=== PATIENT | female | born 1940 | race American Indian/Alaskan Native ===

== ENCOUNTER 2017-03-03 22:53 | Inpatient (IN) | payer MEDICARE, MEDICAID ==
--- NOTE | 2017-03-03 23:17 | ED PDOC ---
Arrival/HPI - General Chief Complaint: Shortness Of Breath Time Seen by Provider: 03/03/17 22:59 Historian: Patient - History of Present Illness Narrative History of Present Illness (Text): 03/03/17 23:14 Charity Nguyen is a 76 year old female, whose past medical history includes breast/lung CA with metastasis, hypertension, and diabetes, presets to the emergency department from [facility] for several days duration of worsening shortness of breath. Patient also endorses a cough and notes of chest pain only when coughing. Reports of mild discomfort while swallowing and some nausea. Denies abdominal pain, vomiting, or diarrhea. Denies fever, chills, headache, dizziness, urinary symptoms, or any other complaints at this time. Time/Duration: < week (several days ) Symptom Onset: Gradual Symptom Course: Worsening Severity Level: Mild Activities at Onset: Light Context: Other (custodial ) Past Medical History - Provider Review Nursing Documentation Reviewed: Yes - Infectious Disease Hx of Infectious Diseases: None - Cardiac Hx Cardiac Disorders: Yes Hx Hypertension: Yes - Pulmonary Hx Respiratory Disorders: Yes Hx Lung Cancer: Yes Hx Sleep Apnea: Yes (WEARS CPAP) - Neurological Hx Neurological Disorder: No Hx Paralysis: No - HEENT Hx HEENT Disorder: No - Renal Hx Renal Disorder: No - Endocrine/Metabolic Hx Diabetes Mellitus Type 2: Yes - Hematological/Oncological Hx Blood Disorders: No Hx Blood Transfusions: No Hx Cancer: Yes (Lung CA) - Integumentary Hx Dermatological Disorder: No - Musculoskeletal/Rheumatological Hx 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; SH JT) - Gastrointestinal Hx Gastrointestinal Disorders: Yes - Genitourinary/Gynecological Hx Genitourinary Disorders: No - Psychiatric Hx Psychophysiologic Disorder: Yes Hx Anxiety: Yes Hx Substance Use: No - Surgical History Hx Tonsillectomy: Yes Hx Vascular Access Device: Yes (Right subclavian portacath) - Anesthesia Hx Anesthesia: Yes Hx Anesthesia Reactions: No Hx Malignant Hyperthermia: No - Suicidal Assessment Feels Threatened In Home Enviroment: No Family/Social History - Physician Review Nursing Documentation Reviewed: Yes Family/Social History: No Known Family HX Smoking Status: Never Smoked Hx Alcohol Use: No Hx Substance Use: No Allergies/Home Meds Allergies/Adverse Reactions: Allergies coconut Allergy (Severe, Verified 08/28/16 09:50) ITCHING,SWELLING,HIVES lactose Allergy (Severe, Verified 08/28/16 09:50) GI DISTRESS Penicillins Allergy (Severe, Verified 08/28/16 09:50) HIVES,ITCHING NUTS Allergy (Severe, Uncoded 08/28/16 09:50) SWELLING,HIVES,ITCHING PALM SEED OIL Allergy (Severe, Uncoded 08/28/16 09:50) ITCHING,SWELLING,HIVES seeds Allergy (Intermediate, Uncoded 06/16/15 04:28) RASH Home Medications: Home Meds Medication Instructions Recorded Confirmed Metoclopramide HCl [Reglan] 5 mg PO TID 06/22/14 03/03/17 Glipizide [Glipizide ER] 2.5 mg PO DAILY 02/28/15 03/03/17 Cholecalciferol [Vitamin D 1000 IU] 1 tab PO DAILY 06/07/15 03/03/17 Metoprolol Succinate 25 mg PO DAILY 06/07/15 03/03/17 ALPRAZolam [Xanax] 1 mg PO TID PRN 08/28/16 03/03/17 Aspirin [Ecotrin] 81 mg PO DAILY 08/28/16 03/03/17 Ferrous Sulfate [Iron] 325 mg PO DAILY 08/28/16 03/03/17 Furosemide [Lasix] 40 mg PO DAILY 08/28/16 03/03/17 Multivitamin [One Daily] 1 tab PO DAILY 08/28/16 03/03/17 Qcizw-4-Jeap Ethyl Esters [OMEGA 3] 500 mg PO DAILY 08/28/16 03/03/17 amLODIPine [Norvasc] 5 mg PO DAILY 08/28/16 03/03/17 traMADol [Ultram] 50 mg PO Q8H PRN 08/28/16 03/03/17 Amino Acids/Protein Hydrolys 30 ml PO DAILY 03/03/17 03/03/17 [Prosource No Carb Protein Liq] Clotrimazole/Betamethasone 1 applic TOP BID 03/03/17 03/03/17 [Lotrisone] Docusate [Colace] 1 cap PO TID 03/03/17 03/03/17 Enoxaparin [Lovenox] 40 mg SC DAILY 03/03/17 03/03/17 Fentanyl [Fentanyl] 25 mcg TD Q72H 03/03/17 03/03/17 Insulin Human Regular [Novolin R] 1 unit SC ACHS 03/03/17 03/03/17 Olmesartan/Hydrochlorothiazide 1 tab PO DAILY 03/03/17 03/03/17 [Benicar Hct 40-12.5 mg Tablet] Potassium Chloride [K-Dur 20 mEq 1 tab PO DAILY 03/03/17 03/03/17 ER Tab] levoFLOXacin [Levaquin] 1 tab PO DAILY 03/03/17 03/03/17 Review of Systems - Physician Review All systems were reviewed & negative as marked: Yes - Review of Systems Constitutional: Normal. absent: Fatigue, Fevers Respiratory: SOB, Cough. absent: Sputum Cardiovascular: Chest Pain (while coughing ) Gastrointestinal: Nausea, Appetite Changes (decreased appetite ). absent: Abdominal Pain, Diarrhea, Vomiting Neurological: Normal. absent: Headache, Dizziness, Focal Weakness Physical Exam Vital Signs Reviewed: Yes Vital Signs Temp Pulse Resp BP Pulse Ox 03/04/17 00:50 96 H 17 144/75 99 03/04/17 00:05 156/80 H 03/03/17 23:33 98.8 F 03/03/17 23:00 18 100 03/03/17 22:54 99 H 17 156/80 H 99 Temperature: Afebrile Blood Pressure: Hypertensive Pulse: Tachycardic Respiratory Rate: Normal Appearance: Positive for: Non-Toxic, Uncomfortable Pain Distress: None Mental Status: Positive for: Alert and Oriented X 3 - Systems Exam Head: Present: Atraumatic, Normocephalic Pupils: Present: PERRL Conjunctiva: Present: Normal Mouth: Present: Moist Mucous Membranes Respiratory/Chest: Present: Decreased Breath Sounds (diminished breath sounds bilaterally ). No: Respiratory Distress, Accessory Muscle Use Cardiovascular: Present: Regular Rate and Rhythm, Normal S1, S2. No: Murmurs Abdomen: Present: Normal Bowel Sounds. No: Tenderness, Distention, Peritoneal Signs Lower Extremity: Present: Edema (trace edema ). No: CALF TENDERNESS Neurological: Present: GCS=15, CN II-XII Intact, Speech Normal, Motor Func Grossly Intact, Normal Sensory Function Skin: Present: Warm, Dry, Normal Color. No: Rashes Psychiatric: Present: Alert, Oriented x 3, Normal Insight, Normal Concentration Medical Decision Making ED Course and Treatment: 03/03/17 23:20 Impression: A 76 year old female who presents to the emergency department complaining of several day duration of shortness of breath and chest pain only when coughing. Differential Diagnosis include but are not limited to: Worsening metastasis vs. Pleural effusion vs. Pneumonia vs. CHF Plan: -- EKG -- Labs, cardiac enzymes -- Chest X-ray -- Blood culture -- Urinalysis -- Reassess and disposition Progress Notes: 03/03/17 23:56 EKG interpreted by me: NSR @ 93 bpm. RBBB. Left axis deivation. QRS 138. No STT changes compared to Chest X-ray interpreted by me: shows bilateral pleural effusion. 03/04/17 00:43 Patient's history is noted. CXR shows b/L pleural effusions. There is no noted history of CHF, per record. Pleural effusions are likely related to the metastasis. Will administer lasix and place on tele. Case discussed with Dr. Villar who is aware and agrees with the plan to observe patient at telemetry of pleural effusion. Accepts patient under his service with and Dr. Loco on consult. - Lab Interpretations Lab Results: 03/03/17 23:00 03/03/17 23:00 Lab Results 03/04/17 00:24: Urine Color Yellow, Urine Appearance Clear, Urine pH 6.0, Ur Specific [place] >= 1.030, Urine Protein Negative, Urine Glucose (UA) Negative, Urine Ketones Negative, Urine Blood Trace-lysed H, Urine Nitrate Negative, Urine Bilirubin Negative, Urine Urobilinogen 0.2, Ur Leukocyte Esterase Negative , Urine RBC 0 - 2, Urine WBC 1 - 3, Ur Epithelial Cells 3 - 4, Urine Bacteria Few 03/03/17 23:00: Sodium 133, Potassium 3.7, Chloride 93 L, Carbon Dioxide 34 H, Anion Gap 10, BUN 15, Creatinine 0.6, Est GFR ( Amer) > 60, Est GFR (Non- Af Amer) > 60, Random Glucose 123 H, Calcium 9.1, Magnesium 1.7, Total Bilirubin 0.4, AST 19, ALT 26, Alkaline Phosphatase 72, Lactate Dehydrogenase 345, Total Creatine Kinase 25 L, Troponin I < 0.01, NT-Pro-B Natriuret Pep 301, Total Protein 6.2, Albumin 3.2, Globulin 3.0, Albumin/Globulin Ratio 1.1, Lipase 17 L 03/03/17 23:00: PT 11.9 H, INR 1.10 H, APTT 27.5 03/03/17 23:00: WBC 7.1 D, RBC 3.96, Hgb 11.2 L, Hct 32.3 L, MCV 81.6, MCH 28.3 , MCHC 34.7, RDW 14.9 H, Plt Count 284, MPV 10.3, Gran % 66.0, Lymph % (Auto) 16.4 L, [place] % (Auto) 14.2 H, Eos % (Auto) 3.1, Baso % (Auto) 0.3, Gran # 4.71, Lymph # 1.2, [place] # 1.0 H, Eos # 0.2, Baso # 0.02 - RAD Interpretation Radiology Orders: 03/03/17 23:20 CHEST PORTABLE [RAD] Stat - Medication Orders Current Medication Orders: Discontinued Medications Furosemide (Lasix) 40 mg IVP STAT STA Stop: 03/03/17 23:58 Last Admin: 03/04/17 00:05 Dose: 40 mg - Scribe Statement The provider has reviewed the documentation as recorded by the Lam Egan Provider Attestation: All medical record entries made by the Lam were at my direction and personally dictated by me. I have reviewed the chart and agree that the record accurately reflects my personal performance of the history, physical exam, medical decision making, and the department course for this patient. I have also personally directed, reviewed, and agree with the discharge instructions and disposition. Disposition/Present on Arrival - Present on Arrival Any Indicators Present on Arrival: No History of DVT/PE: No History of Uncontrolled Diabetes: No Urinary Catheter: No History of Decub. Ulcer: No History Surgical Site Infection Following: None - Disposition Have Diagnosis and Disposition been Completed?: Yes Diagnosis: Pleural effusion Disposition: HOSPITALIZED Disposition Time: 12:35 Patient Plan: Observation, Telemetry Condition: FAIR
[2017-03-04 00:22] LABS: BASO # 0.02 K/mm3 (0.0-2.0); BASO % 0.3 % (0.0-3.0); EOS # 0.2 (0.0-0.7); EOS % 3.1 % (1.5-5.0); GRAN # 4.71 (1.4-6.5); HEMOGLOBIN 11.2 gm/dL (12.0-16.0); LYMPH # 1.2 (1.2-3.4); LYMPH % 16.4 % (22.0-35.0); MEAN CELL VOLUME 81.6 fL (80.0-105.0); MEAN CORPUSCULAR HEMOGLOBIN 28.3 pg (25.0-35.0); MEAN CORPUSCULAR HGB CONC 34.7 g/dl (31.0-37.0); MEAN PLATELET VOLUME 10.3 fl (7.0-11.0); MONO % 14.2 % (1.0-6.0); PLATELET COUNT 284 10^3/uL (120.0-450.0); RBC 3.96 10^6/uL (3.5-6.1); RED CELL DISTRIBUTION WIDTH 14.9 % (11.5-14.5); WHITE BLOOD COUNT 7.1 10^3/ul (4.5-11.0)
[2017-03-04 00:31] LABS: ALB/GLOB RATIO 1.1 (1.1-1.8); ALBUMIN 3.2 g/dL (3.0-4.8); ALT/SGPT 26 U/L (7-56); AST/SGOT 19 U/L (15-39); BLOOD UREA NITROGEN 15 mg/dL (7-21); CALCIUM 9.1 mg/dL (8.4-10.5); GFR AFRICAN-AMERICAN > 60; GFR NON-AFRICAN AMERICAN > 60; INR 1.1 (0.93-1.08); LIPASE 17 U/L (23-300); MAGNESIUM 1.7 mg/dL (1.7-2.2); PARTIAL THROMBOPLASTIN TIME 27.5 Seconds (23.7-30.8); PROTHROMBIN TIME 11.9 Seconds (9.9-11.8)
[2017-03-04 00:34] LABS: URINE BILIRUBIN NEGATIVE (NEGATIVE); URINE BLOOD TRACE-LYSED (NEGATIVE); URINE GLUCOSE (UA) NEGATIVE (NEGATIVE); URINE LEUKOCYTE ESTERASE NEGATIVE Leu/uL (NEGATIVE); URINE NITRATE NEGATIVE (NEGATIVE); URINE PROTEIN NEGATIVE mg/dL (<30 mg/dL); URINE UROBILINOGEN 0.2 E.U./dL (<1 E.U./dL)
[2017-03-04 00:35] LABS: URINE APPEARANCE CLEAR (CLEAR); URINE COLOR YELLOW (YELLOW)
[2017-03-04 00:41] LABS: URINE BACTERIA FEW (NEG); URINE RBC 0 - 2 /hpf (0-2)
[2017-03-04 00:42] LABS: B-TYPE NATRIURETIC PEPTIDE 301 pg/mL (0-450)
[2017-03-04 00:47] LABS: TROPONIN I < 0.01 ng/mL
[2017-03-04 04:02] VITALS: BMI 35.8
[2017-03-04] MEDS ORDERED: Levalbuterol 0.63 MG/3 ML Inhal Soln UD IH PRN (07:50)
--- NOTE | 2017-03-04 08:09 | CP.PCM.HP ---
History of Present Illness - History of Present Illness History of Present Illness: 76 y/o aaf from alexx at [facility] for weakness presents w/ acute sob s/p nebs and meds in the [facility] she got worse [place] [facility] [place] and increase in weakness pmed hx of breast/lung cancer w/ mets chf copd htn dm psurg hxtonsils portacath rt psoc hx no tob no alc no drugs pfamhx dm htn allergies coconut lasctose pcn nuts palm seed seeds meds see mar very weak sob and uncomfortable Present on Admission - Present on Admission Any Indicators Present on Admission: Yes History of DVT/PE: No History of Uncontrolled Diabetes: No Urinary Catheter: No Decubitus Ulcer Present: No Review of Systems - Review of Systems Systems not reviewed;Unavailable: Respiratory Distress - Constitutional Constitutional: Fatigue, Lethargy - Respiratory Respiratory: Dyspnea, Dyspnea on Exertion, Wheezing - Musculoskeletal Musculoskeletal: Back Pain, Limited Range of Motion - Integumentary Additional comments: chest skin growth w/ pain Past Patient History - Infectious Disease Hx of Infectious Diseases: None - Past Medical History & Family History Past Medical History?: Yes - Past Social History Smoking Status: Never Smoked - CARDIAC Hx Cardiac Disorders: Yes Hx Angina: Yes Hx Hypertension: Yes - PULMONARY Hx Sleep Apnea: Yes (wears cpap) Other/Comment: lung cancer - NEUROLOGICAL Hx Neurological Disorder: No Hx Paralysis: No - HEENT Hx HEENT Problems: No - RENAL Hx Chronic Kidney Disease: No - ENDOCRINE/METABOLIC Hx Endocrine Disorders: Yes Hx Diabetes Mellitus Type 2: Yes - HEMATOLOGICAL/ONCOLOGICAL Hx Blood Disorders: No Hx Blood Transfusions: No Hx Cancer: Yes (Lung CA) - INTEGUMENTARY Hx Dermatological Problems: No - MUSCULOSKELETAL/RHEUMATOLOGICAL Hx Musculoskeletal Disorders: Yes Hx Arthritis: Yes (b/l knees) Hx Falls: Yes - GASTROINTESTINAL Hx Gastrointestinal Disorders: Yes Other/Comment: colonoscopy,constipation, colonic polyps - GENITOURINARY/GYNECOLOGICAL Hx Genitourinary Disorders: No - PSYCHIATRIC Hx Psychophysiologic Disorder: Yes Hx Anxiety: Yes Hx Substance Use: No - SURGICAL HISTORY Hx Surgeries: Yes (partial right masectomy) Hx Mastectomy: Yes - ANESTHESIA Hx Anesthesia: Yes Hx Anesthesia Reactions: No Hx Malignant Hyperthermia: No Meds Allergies/Adverse Reactions: Allergies Allergy/AdvReac Type Severity Reaction Status Date / Time coconut Allergy Severe ITCHING,SWE Verified 08/28/16 09:50 LLING,HIVES lactose Allergy Severe GI DISTRESS Verified 08/28/16 09:50 Penicillins Allergy Severe HIVES,ITCHI Verified 08/28/16 09:50 NG NUTS Allergy Severe SWELLING,HI Uncoded 08/28/16 09:50 VES,ITCHING PALM SEED OIL Allergy Severe ITCHING,SWE Uncoded 08/28/16 09:50 LLING,HIVES seeds Allergy Intermediate RASH Uncoded 06/16/15 04:28 Physical Exam - Constitutional Appears: In Acute Distress - Head Exam Head Exam: ATRAUMATIC, NORMAL INSPECTION, NORMOCEPHALIC - Eye Exam Eye Exam: Normal appearance - ENT Exam ENT Exam: Mucous Membranes Moist - Respiratory Exam Respiratory Exam: Decreased Breath Sounds, Wheezes - Cardiovascular Exam Cardiovascular Exam: REGULAR RHYTHM - GI/Abdominal Exam GI & Abdominal Exam: Normal Bowel Sounds, Soft - Extremities Exam Extremities exam: Positive for: pedal edema - Back Exam Back exam: NORMAL INSPECTION - Neurological Exam Neurological exam: Alert, CN II-XII Intact, Oriented x3 - Psychiatric Exam Psychiatric exam: Normal Affect, Normal Mood - Skin Skin Exam: Warm Results - Vital Signs Recent Vital Signs: Last Vital Signs Temp 97.7 F 03/04/17 06:00 Pulse 101 H 03/04/17 06:00 Resp 19 03/04/17 06:00 BP 158/72 H 03/04/17 06:00 Pulse Ox 97 03/04/17 06:00 - Labs Result Diagrams: 03/03/17 23:00 03/03/17 23:00 Labs: Laboratory Results - last 24 hr 03/04/17 01:38 POC Glucose (mg/dL) 57 L Assessment & Plan - Assessment and Plan (Free Text) Assessment: ernst copd chf lung ca dm htn weakness Plan: pulm cardio oncologu evals iv lasix iv solumedrol pt o2 insulin meds poor prognosis she wants everything done at this time - Date & Time Date: 03/04/17 Time: 07:00
--- NOTE | 2017-03-04 09:19 | RAD ---
HISTORY: sob COMPARISON: 09/22/2016 FINDINGS: LUNGS: Vascular congestion with bibasilar infiltrates PLEURA: No significant pleural effusion identified, no pneumothorax apparent. CARDIOVASCULAR: There is moderate cardiomegaly and moderate vascular congestion. OSSEOUS STRUCTURES: No significant abnormalities. VISUALIZED UPPER ABDOMEN: Normal. OTHER FINDINGS: None. IMPRESSION: Moderate vascular congestion
[2017-03-04] MEDS: Metoprolol Succinate 25 mg XL Tab PO SCH (09:43)
[2017-03-04] MEDS: MethylPREDNISolone 40 mg Vial IVP SCH ×2 (09:43→21:31)
[2017-03-04] MEDS: GlipiZIDE 2.5 mg SR Tab PO SCH (09:44)
[2017-03-04] MEDS: Enoxaparin 40 mg Syringe SC SCH (09:45)
[2017-03-04] MEDS ORDERED: Non Formulary Medication (Olmesartan/Hydrochlorothiazide [Benicar Hct 40-12.5 Mg Tablet] 1 PO SCH (10:00)
[2017-03-04] MEDS: Levalbuterol 0.63 MG/3 ML Inhal Soln UD IH SCH ×3 (10:47→20:12)
[2017-03-04] MEDS: Budesonide 0.5 mg/2 ml Inhal Susp UD IH SCH ×2 (10:47→20:12)
[2017-03-04] MEDS: Insulin Reg-HIGH-Coverage SC SCH ×3 (11:30→22:00)
--- NOTE | 2017-03-04 13:20 | CARD ---
APPROVED REPORT EKG Measurement Heart [id number] <Conclusion> Normal sinus rhythm Left axis deviation Right bundle branch block Septal infarct, age undetermined
[2017-03-05] MEDS: Levalbuterol 0.63 MG/3 ML Inhal Soln UD IH SCH ×4 (01:22→19:24)
--- NOTE | 2017-03-05 07:39 | CP.PCM.CON ---
History of Present Illness - History of Present Illness History of Present Illness: dyspnea Progressive breast ca s/p multiple chemo agents. Supporytive palliative care advised Past Patient History - Infectious Disease Hx of Infectious Diseases: None - Past Medical History & Family History Past Medical History?: Yes - Past Social History Smoking Status: Never Smoked - CARDIAC Hx Cardiac Disorders: Yes Hx Hypertension: Yes - PULMONARY Hx Sleep Apnea: Yes (wears cpap) Other/Comment: lung cancer - NEUROLOGICAL Hx Neurological Disorder: No Hx Paralysis: No - HEENT Hx HEENT Problems: No - RENAL Hx Chronic Kidney Disease: No - ENDOCRINE/METABOLIC Hx Diabetes Mellitus Type 2: Yes - HEMATOLOGICAL/ONCOLOGICAL Hx Blood Disorders: No Hx Blood Transfusions: No Hx Cancer: Yes (Lung CA) - INTEGUMENTARY Hx Dermatological Problems: No - MUSCULOSKELETAL/RHEUMATOLOGICAL Hx Arthritis: Yes (b/l knees) - GASTROINTESTINAL Hx Gastrointestinal Disorders: Yes Other/Comment: colonoscopy,constipation, colonic polyps - GENITOURINARY/GYNECOLOGICAL Hx Genitourinary Disorders: No - PSYCHIATRIC Hx Psychophysiologic Disorder: Yes Hx Anxiety: Yes Hx Substance Use: No - SURGICAL HISTORY Hx Surgeries: Yes (partial right masectomy) Hx Mastectomy: Yes - ANESTHESIA Hx Anesthesia: Yes Hx Anesthesia Reactions: No Hx Malignant Hyperthermia: No Meds Allergies/Adverse Reactions: Allergies Allergy/AdvReac Type Severity Reaction Status Date / Time coconut Allergy Severe ITCHING,SWE Verified 08/28/16 09:50 LLING,HIVES lactose Allergy Severe GI DISTRESS Verified 08/28/16 09:50 Penicillins Allergy Severe HIVES,ITCHI Verified 08/28/16 09:50 NG NUTS Allergy Severe SWELLING,HI Uncoded 08/28/16 09:50 VES,ITCHING PALM SEED OIL Allergy Severe ITCHING,SWE Uncoded 08/28/16 09:50 LLING,HIVES seeds Allergy Intermediate RASH Uncoded 06/16/15 04:28 - Medications Medications: Current Medications Alprazolam (Xanax) 1 mg PO TID PRN; Protocol PRN Reason: Anxiety Last Admin: 03/04/17 21:32 Dose: 1 mg Amlodipine Besylate (Norvasc) 5 mg PO DAILY [facility] Last Admin: 03/04/17 09:42 Dose: 5 mg Aspirin (Ecotrin) 81 mg PO DAILY [facility] Last Admin: 03/04/17 09:42 Dose: 81 mg Budesonide (Pulmicort Respules) 0.5 mg IH [id number] [facility] Last Admin: 03/04/17 20:12 Dose: 0.5 mg Docusate Sodium (Colace) 100 mg PO TID [facility] Last Admin: 03/04/17 18:35 Dose: 100 mg Enoxaparin Sodium (Lovenox) 40 mg SC DAILY [facility] PRN Reason: Protocol Last Admin: 03/04/17 09:45 Dose: 40 mg Fentanyl (Duragesic) 1 patch TD Q72H [facility] Last Admin: 03/04/17 10:32 Dose: 1 patch Ferrous Sulfate (Feosol) 324 mg PO DAILY [facility] Last Admin: 03/04/17 09:42 Dose: 324 mg Furosemide (Lasix) 40 mg IVP DAILY [facility] Last Admin: 03/04/17 09:45 Dose: 40 mg Glipizide (Glucotrol Xl) 2.5 mg PO DAILY [facility] Last Admin: 03/04/17 09:44 Dose: 2.5 mg Hydrochlorothiazide (Microzide) 12.5 mg PO DAILY [facility] Last Admin: 03/04/17 09:42 Dose: 12.5 mg Insulin Human Regular (Humulin R High) 0 units SC ACHS [facility] PRN Reason: Protocol Last Admin: 03/04/17 22:00 Dose: Not Given Levalbuterol HCl (Xopenex) 0.63 mg IH [id number] [facility] Last Admin: 03/05/17 01:22 Dose: 0.63 mg Levalbuterol HCl (Xopenex) 0.63 mg IH Q2 PRN PRN Reason: Shortness of Breath Last Admin: 03/04/17 11:23 Dose: 0.63 mg Losartan Potassium (Cozaar) 100 mg PO DAILY [facility] Last Admin: 03/04/17 09:44 Dose: 100 mg Methylprednisolone (Solu-Medrol) 30 mg IVP Q12 [facility] Last Admin: 03/04/17 21:31 Dose: 30 mg Metoclopramide HCl (Reglan) 5 mg PO TID [facility] Last Admin: 03/04/17 18:35 Dose: 5 mg Metoprolol Succinate (Toprol Xl) 25 mg PO DAILY [facility] Last Admin: 03/04/17 09:43 Dose: 25 mg Results - Vital Signs Recent Vital Signs: Last Vital Signs Temp 97.1 F L 03/05/17 06:00 Pulse 101 H 03/05/17 06:00 Resp 18 03/05/17 06:00 BP 160/87 H 03/05/17 06:00 Pulse Ox 95 03/05/17 06:00 - Labs Result Diagrams: 03/03/17 23:00 03/03/17 23:00 Labs: Laboratory Results - last 24 hr 03/04/17 03/04/17 03/04/17 11:32 16:40 21:21 POC Glucose (mg/dL) 129 H 195 H 127 H
[2017-03-05] MEDS: Budesonide 0.5 mg/2 ml Inhal Susp UD IH SCH ×2 (07:54→19:24)
[2017-03-05] MEDS: Insulin Reg-HIGH-Coverage SC SCH ×4 (08:21→21:42)
--- NOTE | 2017-03-05 08:28 | CP.PCM.PN ---
Subjective - Date & Time of Evaluation Date of Evaluation: 03/05/17 Time of Evaluation: 07:00 - Subjective Subjective: seen in bed slept fair better w/ iv solumedrol on o2 and nebs extremely weak eats some some pain gets medicated still wants new chemo tmt doesnt want hospice ?? Objective - Vital Signs/Intake and Output Vital Signs (last 24 hours): Temp Pulse Resp BP Pulse Ox 97.1 F L 101 H 18 160/87 H 95 03/05/17 06:00 03/05/17 06:00 03/05/17 06:00 03/05/17 06:00 03/05/17 06:00 Intake and Output: 03/05/17 03/05/17 06:59 18:59 Intake Total 420 Output Total 600 Balance -180 - Medications Medications: Current Medications Alprazolam (Xanax) 1 mg PO TID PRN; Protocol PRN Reason: Anxiety Last Admin: 03/04/17 21:32 Dose: 1 mg Amlodipine Besylate (Norvasc) 5 mg PO DAILY [facility] Last Admin: 03/04/17 09:42 Dose: 5 mg Aspirin (Ecotrin) 81 mg PO DAILY [facility] Last Admin: 03/04/17 09:42 Dose: 81 mg Budesonide (Pulmicort Respules) 0.5 mg IH [id number] [facility] Last Admin: 03/05/17 07:54 Dose: 0.5 mg Docusate Sodium (Colace) 100 mg PO TID [facility] Last Admin: 03/04/17 18:35 Dose: 100 mg Enoxaparin Sodium (Lovenox) 40 mg SC DAILY [facility] PRN Reason: Protocol Last Admin: 03/04/17 09:45 Dose: 40 mg Fentanyl (Duragesic) 1 patch TD Q72H [facility] Last Admin: 03/04/17 10:32 Dose: 1 patch Ferrous Sulfate (Feosol) 324 mg PO DAILY [facility] Last Admin: 03/04/17 09:42 Dose: 324 mg Furosemide (Lasix) 40 mg IVP DAILY [facility] Last Admin: 03/04/17 09:45 Dose: 40 mg Glipizide (Glucotrol Xl) 2.5 mg PO DAILY [facility] Last Admin: 03/04/17 09:44 Dose: 2.5 mg Hydrochlorothiazide (Microzide) 12.5 mg PO DAILY [facility] Last Admin: 03/04/17 09:42 Dose: 12.5 mg Insulin Human Regular (Humulin R High) 0 units SC ACHS [facility] PRN Reason: Protocol Last Admin: 03/05/17 08:21 Dose: 2 units Levalbuterol HCl (Xopenex) 0.63 mg IH [id number] [facility] Last Admin: 03/05/17 07:54 Dose: 0.63 mg Levalbuterol HCl (Xopenex) 0.63 mg IH Q2 PRN PRN Reason: Shortness of Breath Last Admin: 03/04/17 11:23 Dose: 0.63 mg Losartan Potassium (Cozaar) 100 mg PO DAILY [facility] Last Admin: 03/04/17 09:44 Dose: 100 mg Methylprednisolone (Solu-Medrol) 30 mg IVP Q12 [facility] Last Admin: 03/04/17 21:31 Dose: 30 mg Metoclopramide HCl (Reglan) 5 mg PO TID [facility] Last Admin: 03/04/17 18:35 Dose: 5 mg Metoprolol Succinate (Toprol Xl) 25 mg PO DAILY [facility] Last Admin: 03/04/17 09:43 Dose: 25 mg - Labs Labs: PT 11.9 Seconds (9.9-11.8) H 03/03/17 23:00 INR 1.10 (0.93-1.08) H 03/03/17 23:00 APTT 27.5 Seconds (23.7-30.8) 03/03/17 23:00 - Constitutional Appears: In Acute Distress - Head Exam Head Exam: NORMAL INSPECTION - Eye Exam Eye Exam: Normal appearance - ENT Exam ENT Exam: Normal Exam - Neck Exam Neck Exam: Normal Inspection - Respiratory Exam Respiratory Exam: Decreased Breath Sounds, Wheezes, Respiratory Distress - Cardiovascular Exam Cardiovascular Exam: REGULAR RHYTHM - GI/Abdominal Exam GI & Abdominal Exam: Soft, Normal Bowel Sounds - Extremities Exam Extremities Exam: Normal Inspection - Back Exam Back Exam: NORMAL INSPECTION - Neurological Exam Neurological Exam: Alert, Oriented x3 - Skin Skin Exam: Warm Assessment and Plan - Assessment and Plan (Free Text) Assessment: ernst sob chf copd lung cancer breast cancer weakness lethargic Plan: oncology appreciated cont w/ pulm and cardio tmt pt checking labs discussed w/ her the tmt plan improve resp increase strength if possible then tmt for ca if possible and if she can handle it i think she needs hospice she wants next chemo
[2017-03-05 08:47] LABS: HEMOGLOBIN 12.7 gm/dL (12.0-16.0); MEAN CELL VOLUME 80.9 fL (80.0-105.0); MEAN CORPUSCULAR HEMOGLOBIN 28.5 pg (25.0-35.0); MEAN CORPUSCULAR HGB CONC 35.3 g/dl (31.0-37.0); MEAN PLATELET VOLUME 9.4 fl (7.0-11.0); RBC 4.45 10^6/uL (3.5-6.1); RED CELL DISTRIBUTION WIDTH 14.5 % (11.5-14.5); WHITE BLOOD COUNT 7.5 10^3/ul (4.5-11.0)
[2017-03-05 08:55] LABS: ALB/GLOB RATIO 1.1 (1.1-1.8); ALBUMIN 3.4 g/dL (3.0-4.8); ALT/SGPT 27 U/L (7-56); AST/SGOT 18 U/L (15-39); BLOOD UREA NITROGEN 15 mg/dL (7-21); CALCIUM 9.1 mg/dL (8.4-10.5); GFR AFRICAN-AMERICAN > 60; GFR NON-AFRICAN AMERICAN > 60
[2017-03-05 09:03] LABS: B-TYPE NATRIURETIC PEPTIDE 761 pg/mL (0-450)
[2017-03-05] MEDS: GlipiZIDE 2.5 mg SR Tab PO SCH (10:37)
[2017-03-05] MEDS: Enoxaparin 40 mg Syringe SC SCH (10:38)
[2017-03-05] MEDS: Metoprolol Succinate 25 mg XL Tab PO SCH (10:39)
--- NOTE | 2017-03-05 11:13 | CP.PCM.CON ---
History of Present Illness - History of Present Illness History of Present Illness: Palliative consult requested by Dr Kala Villar Reason: Goals of care 76 year old female who was sent form [facility] with increased shortness of breath and chest pain when coughing.Chest x ray showed vascular congestion. Labs unremarkable, BNP 76.1 PMHX: lymphoma of lung, triple negative breast cancer s/p right mastectomy, malignant pleural effusions, s/p chemotherapy, arthritis of lumbar spine, DM, HTN. Social History: Non smoker, no alcohols or drug use. Lives alone. Family History : Non contributory. Advance Care Planning:The patient has a POLST: DNR/DNI. Review of Systems - Constitutional Constitutional: Fatigue, Weight Loss - EENT Additional comments: negative - Breasts Breasts: Skin Changes - Cardiovascular Additional comments: negative - Respiratory Respiratory: Dyspnea, Pain with Coughing - Gastrointestinal Gastrointestinal: Constipation, Early Satiety - Genitourinary Additional comments: negative - Musculoskeletal Musculoskeletal: Arthralgias, Back Pain, Stiffness - Integumentary Additional comments: negative - Neurological Additional comments: negative Past Patient History - Infectious Disease Hx of Infectious Diseases: None - Past Medical History & Family History Past Medical History?: Yes - Past Social History Smoking Status: Never Smoked - CARDIAC Hx Cardiac Disorders: Yes Hx Hypertension: Yes - PULMONARY Hx Sleep Apnea: Yes (wears cpap) Other/Comment: lung cancer - NEUROLOGICAL Hx Neurological Disorder: No Hx Paralysis: No - HEENT Hx HEENT Problems: No - RENAL Hx Chronic Kidney Disease: No - ENDOCRINE/METABOLIC Hx Diabetes Mellitus Type 2: Yes - HEMATOLOGICAL/ONCOLOGICAL Hx Blood Disorders: No Hx Blood Transfusions: No Hx Cancer: Yes (Lung CA) - INTEGUMENTARY Hx Dermatological Problems: No - MUSCULOSKELETAL/RHEUMATOLOGICAL Hx Arthritis: Yes (b/l knees) - GASTROINTESTINAL Hx Gastrointestinal Disorders: Yes Other/Comment: colonoscopy,constipation, colonic polyps - GENITOURINARY/GYNECOLOGICAL Hx Genitourinary Disorders: No - PSYCHIATRIC Hx Psychophysiologic Disorder: Yes Hx Anxiety: Yes Hx Substance Use: No - SURGICAL HISTORY Hx Surgeries: Yes (partial right masectomy) Hx Mastectomy: Yes - ANESTHESIA Hx Anesthesia: Yes Hx Anesthesia Reactions: No Hx Malignant Hyperthermia: No Meds Allergies/Adverse Reactions: Allergies Allergy/AdvReac Type Severity Reaction Status Date / Time coconut Allergy Severe ITCHING,SWE Verified 08/28/16 09:50 LLING,HIVES lactose Allergy Severe GI DISTRESS Verified 08/28/16 09:50 Penicillins Allergy Severe HIVES,ITCHI Verified 08/28/16 09:50 NG NUTS Allergy Severe SWELLING,HI Uncoded 08/28/16 09:50 VES,ITCHING PALM SEED OIL Allergy Severe ITCHING,SWE Uncoded 08/28/16 09:50 LLING,HIVES seeds Allergy Intermediate RASH Uncoded 06/16/15 04:28 - Medications Medications: Current Medications Alprazolam (Xanax) 1 mg PO TID PRN; Protocol PRN Reason: Anxiety Last Admin: 03/04/17 21:32 Dose: 1 mg Amlodipine Besylate (Norvasc) 5 mg PO DAILY [facility] Last Admin: 03/05/17 10:37 Dose: 5 mg Aspirin (Ecotrin) 81 mg PO DAILY [facility] Last Admin: 03/05/17 10:38 Dose: 81 mg Budesonide (Pulmicort Respules) 0.5 mg IH [id number] [facility] Last Admin: 03/05/17 07:54 Dose: 0.5 mg Docusate Sodium (Colace) 100 mg PO TID [facility] Last Admin: 03/05/17 10:36 Dose: 100 mg Enoxaparin Sodium (Lovenox) 40 mg SC DAILY [facility] PRN Reason: Protocol Last Admin: 03/05/17 10:38 Dose: 40 mg Fentanyl (Duragesic) 1 patch TD Q72H [facility] Last Admin: 03/04/17 10:32 Dose: 1 patch Ferrous Sulfate (Feosol) 324 mg PO DAILY [facility] Last Admin: 03/05/17 10:37 Dose: 324 mg Furosemide (Lasix) 40 mg IVP DAILY [facility] Last Admin: 03/04/17 09:45 Dose: 40 mg Glipizide (Glucotrol Xl) 2.5 mg PO DAILY [facility] Last Admin: 03/05/17 10:37 Dose: 2.5 mg Hydrochlorothiazide (Microzide) 12.5 mg PO DAILY [facility] Last Admin: 03/05/17 10:36 Dose: 12.5 mg Insulin Human Regular (Humulin R High) 0 units SC ACHS [facility] PRN Reason: Protocol Last Admin: 03/05/17 08:21 Dose: 2 units Ketorolac Tromethamine (Toradol) 30 mg IVP Q6 PRN PRN Reason: Pain, moderate (4-7) Levalbuterol HCl (Xopenex) 0.63 mg IH [id number] [facility] Last Admin: 03/05/17 07:54 Dose: 0.63 mg Levalbuterol HCl (Xopenex) 0.63 mg IH Q2 PRN PRN Reason: Shortness of Breath Last Admin: 03/04/17 11:23 Dose: 0.63 mg Losartan Potassium (Cozaar) 100 mg PO DAILY [facility] Last Admin: 03/05/17 10:37 Dose: 100 mg Methylprednisolone (Solu-Medrol) 30 mg IVP Q12 [facility] Last Admin: 03/04/17 21:31 Dose: 30 mg Metoclopramide HCl (Reglan) 5 mg PO TID [facility] Last Admin: 03/05/17 10:36 Dose: 5 mg Metoprolol Succinate (Toprol Xl) 25 mg PO DAILY [facility] Last Admin: 03/05/17 10:39 Dose: 25 mg Physical Exam - Constitutional Appears: No Acute Distress, Chronically Ill - Head Exam Head Exam: NORMOCEPHALIC - Eye Exam Eye Exam: Normal appearance, PERRL - ENT Exam ENT Exam: Mucous Membranes Moist, Normal Oropharynx - Neck Exam Neck exam: Positive for: Normal Inspection - Respiratory Exam Respiratory Exam: Rales, NORMAL BREATHING PATTERN - Cardiovascular Exam Cardiovascular Exam: REGULAR RHYTHM, +S1, +S2 - GI/Abdominal Exam GI & Abdominal Exam: Normal Bowel Sounds, Soft Additional comments: no tenderness - Extremities Exam Additional comments: 2 + edema of both lower extremities - Back Exam Back exam: NORMAL INSPECTION - Neurological Exam Neurological exam: Alert, Oriented x3 - Skin Skin Exam: Dry, Warm - Additional Findings Additional findings: Palliative performance scale rating 50 % Results - Vital Signs Recent Vital Signs: Last Vital Signs Temp 97.1 F L 03/05/17 06:00 Pulse 84 03/05/17 10:39 Resp 18 03/05/17 06:00 BP 125/64 03/05/17 10:39 Pulse Ox 95 03/05/17 06:00 - Labs Result Diagrams: 03/05/17 08:40 03/05/17 08:40 Labs: Laboratory Results - last 24 hr 03/04/17 03/04/17 03/04/17 11:32 16:40 21:21 WBC RBC Hgb Hct MCV MCH MCHC RDW Plt Count MPV Sodium Potassium Chloride Carbon Dioxide Anion Gap BUN Creatinine Est GFR ( Amer) Est GFR (Non-Af Amer) POC Glucose (mg/dL) 129 H 195 H 127 H Random Glucose Calcium Total Bilirubin AST ALT Alkaline Phosphatase NT-Pro-B Natriuret Pep Total Protein Albumin Globulin Albumin/Globulin Ratio 03/05/17 03/05/17 03/05/17 07:34 08:40 08:40 WBC 7.5 RBC 4.45 Hgb 12.7 Hct 36.0 MCV 80.9 MCH 28.5 MCHC 35.3 RDW 14.5 Plt Count 257 MPV 9.4 Sodium 135 Potassium 4.2 Chloride 88 L Carbon Dioxide 40 H Anion Gap 11 BUN 15 Creatinine 0.6 Est GFR ( Amer) > 60 Est GFR (Non-Af Amer) > 60 POC Glucose (mg/dL) 170 H Random Glucose 161 H Calcium 9.1 Total Bilirubin 0.4 AST 18 ALT 27 Alkaline Phosphatase 73 NT-Pro-B Natriuret Pep 761 H Total Protein 6.4 Albumin 3.4 Globulin 3.0 Albumin/Globulin Ratio 1.1 Assessment & Plan - Assessment and Plan (Free Text) Assessment: 76 year old female with history of Lymphoma of lung, triple negative breast cancer, malignant pleural effusions, admitted with CHF/COPD exacerbation. She received chemotherapy two weeks ago for breast cancer. The patient is pleasant,alert. She states that after her last chemotherapy she weak and fatigued. She noted that her legs have been swelling over the past few weeks. She ambulates with walker at home, but does have a wheelchair if needed. She lives alone but her sister and daughter help when she needs them. We spoke about her goals of care. The patient stated that she wants to continue with chemotherapy for as long as she is able to do so. I explained that when she is no longer able to tolerate treatment that hospice was an option. Hospice services explained in detail. Questions answered. The patient states that when that time comes she is considering moving to [place] so that her daughters and grandchildren could care for her. She was appreciative for information about comfort/hospice care. The patient has a valid POLST: DNR/DNI. Plan: DNR/DNI Will assist with goals of care and advance care planning - Date & Time Date: 03/05/17 Time: 13:00
[2017-03-05] MEDS: MethylPREDNISolone 40 mg Vial IVP SCH ×2 (11:52→21:41)
--- NOTE | 2017-03-05 17:56 | CARD ---
APPROVED REPORT EXAM: Two-dimensional and M-mode echocardiogram with Doppler and color Doppler. INDICATION Dyspnea 2D DIMENSIONS Left Atrium (2D)4.5 (1.6-4.0cm)IVSd1.3 (0.7-1.1cm) LVDd4.1 (3.9-5.9cm)PWd1.2 (0.7-1.1cm) LVDs2.8 (2.5-4.0cm)FS (%) 30.6 % LVEF (%)58.7 (>50%) M-Mode DIMENSIONS Aortic Root3.20 (2.2-3.7cm)Aortic Cusp Exc.2.00 (1.5-2.0cm) Aortic Valve AoV Peak Xccdifsx341.0cm/sAoV VTI27.9cmAO Peak GR.11mmHg LVOT Peak Zdadlwih539.0cm/sLVOT VTI21.60cmAO Mean GR.5mmHg Mitral Valve MV E Fktertui27.0cm/sMV A Ektocygz88.6cm/sE/A ratio0.6 TDI Lateral E' Peak V8.38cm/sMedial E' Peak V4.19cm/sE/Lateral E'4.9 E/Medial E'9.8 Pulmonary Valve PV Peak Ijnrboru46.9cm/sPV Peak Grad.3mmHg Tricuspid Valve TR Peak Ytmgtrko422cf/sRAP QYNGVAIZ34omJnAP Peak Gr.51mmHg [id number] LEFT VENTRICLE The left ventricle is normal size. There is borderline concentric left ventricular hypertrophy. The left ventricular function is normal. The left ventricular ejection fraction is within the normal range. There is normal LV segmental wall motion. Transmitral Doppler flow pattern is Grade I-abnormal relaxation pattern. RIGHT VENTRICLE The right ventricle is normal size. There is normal right ventricular wall thickness. The right ventricular systolic function is normal. ATRIA The left atrium is mildly dilated. The right atrium is mildly dilated. AORTIC VALVE The aortic valve is not well visualized. MITRAL VALVE The mitral valve is mildly thickened. Mitral regurgitation is trace. TRICUSPID VALVE There is moderate to severe pulmonary hypertension. GREAT VESSELS The aortic root is normal in size. The IVC was not visualized. PERICARDIAL EFFUSION There is large left pleural effusion. There is a trace circumferential pericardial effusion. <Conclusion> The left ventricle is normal size. There is borderline concentric left ventricular hypertrophy. The left ventricular function is normal. The left ventricular ejection fraction is within the normal range. There is normal LV segmental wall motion. Transmitral Doppler flow pattern is Grade I-abnormal relaxation pattern. There is moderate to severe pulmonary hypertension.
[2017-03-06] MEDS: Levalbuterol 0.63 MG/3 ML Inhal Soln UD IH SCH ×3 (01:37→13:50)
[2017-03-06 05:49] LABS: HEMOGLOBIN 11.7 gm/dL (12.0-16.0); MEAN CELL VOLUME 80.8 fL (80.0-105.0); MEAN CORPUSCULAR HEMOGLOBIN 28.1 pg (25.0-35.0); MEAN CORPUSCULAR HGB CONC 34.8 g/dl (31.0-37.0); MEAN PLATELET VOLUME 9.1 fl (7.0-11.0); RBC 4.16 10^6/uL (3.5-6.1); RED CELL DISTRIBUTION WIDTH 14.8 % (11.5-14.5); WHITE BLOOD COUNT 6.6 10^3/ul (4.5-11.0)
[2017-03-06] MEDS: Budesonide 0.5 mg/2 ml Inhal Susp UD IH SCH (06:59)
--- NOTE | 2017-03-06 07:01 | CP.PCM.PN ---
Subjective - Date & Time of Evaluation Date of Evaluation: 03/06/17 Time of Evaluation: 07:00 - Subjective Subjective: seen in bed sob this am looking for solumedrol bur changes to prednisone needs a breathing tmt and cough meds weak await pt?? eat somee oob to chair once Objective - Vital Signs/Intake and Output Vital Signs (last 24 hours): Temp Pulse Resp BP Pulse Ox 98.4 F 85 18 172/89 H 95 03/05/17 12:00 03/05/17 12:00 03/05/17 12:00 03/05/17 12:00 03/05/17 06:00 Intake and Output: 03/05/17 03/06/17 18:59 06:59 Intake Total 660 Output Total 1050 Balance -390 - Medications Medications: Current Medications Alprazolam (Xanax) 1 mg PO TID PRN; Protocol PRN Reason: Anxiety Last Admin: 03/06/17 01:45 Dose: 1 mg Amlodipine Besylate (Norvasc) 5 mg PO DAILY [facility] Last Admin: 03/05/17 10:37 Dose: 5 mg Aspirin (Ecotrin) 81 mg PO DAILY [facility] Last Admin: 03/05/17 10:38 Dose: 81 mg Budesonide (Pulmicort Respules) 0.5 mg IH [id number] [facility] Last Admin: 03/05/17 19:24 Dose: 0.5 mg Docusate Sodium (Colace) 100 mg PO TID [facility] Last Admin: 03/05/17 21:35 Dose: Not Given Enoxaparin Sodium (Lovenox) 40 mg SC DAILY [facility] PRN Reason: Protocol Last Admin: 03/05/17 10:38 Dose: 40 mg Fentanyl (Duragesic) 1 patch TD Q72H [facility] Last Admin: 03/04/17 10:32 Dose: 1 patch Ferrous Sulfate (Feosol) 324 mg PO DAILY [facility] Last Admin: 03/05/17 10:37 Dose: 324 mg Furosemide (Lasix) 40 mg IVP DAILY [facility] Last Admin: 03/05/17 11:54 Dose: 40 mg Glipizide (Glucotrol Xl) 2.5 mg PO DAILY [facility] Last Admin: 03/05/17 10:37 Dose: 2.5 mg Hydrochlorothiazide (Microzide) 12.5 mg PO DAILY [facility] Last Admin: 03/05/17 10:36 Dose: 12.5 mg Insulin Human Regular (Humulin R High) 0 units SC ACHS [facility] PRN Reason: Protocol Last Admin: 03/05/17 21:42 Dose: Not Given Ketorolac Tromethamine (Toradol) 30 mg IVP Q6 PRN PRN Reason: Pain, moderate (4-7) Last Admin: 03/06/17 04:58 Dose: 30 mg Levalbuterol HCl (Xopenex) 0.63 mg IH [id number] [facility] Last Admin: 03/06/17 01:37 Dose: 0.63 mg Levalbuterol HCl (Xopenex) 0.63 mg IH Q2 PRN PRN Reason: Shortness of Breath Last Admin: 03/04/17 11:23 Dose: 0.63 mg Losartan Potassium (Cozaar) 100 mg PO DAILY [facility] Last Admin: 03/05/17 10:37 Dose: 100 mg Metoclopramide HCl (Reglan) 5 mg PO TID [facility] Last Admin: 03/05/17 21:41 Dose: Not Given Metoprolol Succinate (Toprol Xl) 25 mg PO DAILY [facility] Last Admin: 03/05/17 10:39 Dose: 25 mg Prednisone (Prednisone Tab) 40 mg PO DAILY [facility] Promethazine HCl (Phenergan Syrup) 5 mg PO Q4H PRN PRN Reason: Cough - Labs Labs: 03/06/17 05:00 03/05/17 08:40 PT 11.9 Seconds (9.9-11.8) H 03/03/17 23:00 INR 1.10 (0.93-1.08) H 03/03/17 23:00 APTT 27.5 Seconds (23.7-30.8) 03/03/17 23:00 - Constitutional Appears: No Acute Distress - Head Exam Head Exam: NORMAL INSPECTION - Eye Exam Eye Exam: Normal appearance - ENT Exam ENT Exam: Normal Exam - Respiratory Exam Respiratory Exam: Decreased Breath Sounds, NORMAL BREATHING PATTERN - Cardiovascular Exam Cardiovascular Exam: REGULAR RHYTHM - GI/Abdominal Exam GI & Abdominal Exam: Soft, Normal Bowel Sounds - Extremities Exam Extremities Exam: Normal Inspection - Neurological Exam Neurological Exam: Alert, CN II-XII Intact, Oriented x3 - Psychiatric Exam Psychiatric exam: Normal Mood - Skin Skin Exam: Normal Color, Warm Assessment and Plan - Assessment and Plan (Free Text) Assessment: [facility] copd lung cancer breast cancer weakness Plan: changed to prednisone by pulm await pt eval on iv lasix add cough meds give breathing tmt now will discuss if can transfer back to [facility]
[2017-03-06] MEDS ORDERED: DEXTROMETHORPHAN PO PRN (07:15)
[2017-03-06] MEDS ORDERED: GUAIFENESIN PO PRN (07:15)
[2017-03-06 08:08] VITALS: O2SAT 98
[2017-03-06] MEDS: Insulin Reg-HIGH-Coverage SC SCH ×2 (08:15→11:54)
[2017-03-06] MEDS: guaiFENesin DM 100 mg-10 mg/5 ml UD PO PRN ×2 (08:39→17:11)
--- NOTE | 2017-03-06 08:43 | PQF CHF ---
This form is a permanent part of the medical record Dr. Villar, Patient admitted with worsening SOB which may be multifactorial based on history. BNP rising, treated with Lasix, echocardiogram done. Please document if CHF is an active diagnosis , type and severity. Clarification of your documentation is requested to better reflect the severity of illness and intensity of treatment of your patient. Indicators present [] Diagnosis of CHF and/or history of CHF [] BNP > 200 [] Imaging Finding of Pulmonary Edema /Pleural Effusions [] Fluid/Volume Overload [] Pitting edema [] Ejection Fraction < 40% (Indicative of Systolic Heart Failure) [] Ejection Fraction > 40% (Indicative of Diastolic Heart Failure) [] Dyspnea / Orthopenea / Paroxysmal Nocturnal Dyspnea [] Other: Location in the medical record that reflects the above clinical findings: [] Treatment Provided: [] PHYSICIAN'S RESPONSE Based on your medical judgment of the clinical indicators outlined above, are you treating this patient for a known or suspected: xx[] Acute CHF [xxx] Systolic [] Diastolic [] Combined [] Chronic CHF [] Systolic [] Diastolic [] Combined [] Acute on Chronic CHF []Systolic [] Diastolic [] Combined [] CHF due hypertension [] Acute systolic []Chronic systolic [] Acute/ chronic systolic [] Other, please indicate: [] [] If Unable to Determine, please check the box, sign and date. Present On Admission (POA) Indicator: [] Present at the time of admission [] Not present at the time of admission [] Clinically Undetermined In responding to this query, please exercise your independent professional judgment. The fact that a question is asked does not imply that any particular answer is desired or expected. Thank you for your clarification on this documentation. If you have any questions please call:[ ] * Thank you, [ ]Ph[facility]ong [facility] #[id number] shop mechanic helper SHIRLEY
[2017-03-06] MEDS: Metoprolol Succinate 25 mg XL Tab PO SCH (09:15)
[2017-03-06] MEDS: GlipiZIDE 2.5 mg SR Tab PO SCH (09:16)
[2017-03-06] MEDS: Enoxaparin 40 mg Syringe SC SCH (09:18)
[2017-03-06 18:14] VITALS: BP 160/82; PULSE 94; RESP 20; TEMP 98
--- NOTE | 2017-03-11 16:37 | CP.PCM.PN ---
Subjective - Date & Time of Evaluation Date of Evaluation: 03/05/17 Time of Evaluation: 09:25 - Subjective Subjective: ggggg Objective - Vital Signs/Intake and Output Vital Signs (last 24 hours): Temp Pulse Resp BP Pulse Ox 98 F 94 H 20 160/82 H 98 03/06/17 16:00 03/06/17 16:00 03/06/17 16:00 03/06/17 16:00 03/06/17 16:00 - Labs Labs: 03/06/17 05:00 03/05/17 08:40 PT 11.9 Seconds (9.9-11.8) H 03/03/17 23:00 INR 1.10 (0.93-1.08) H 03/03/17 23:00 APTT 27.5 Seconds (23.7-30.8) 03/03/17 23:00 - Constitutional Appears: Other (Patient is awake, but lethargic, no dyspnea noted ) - Respiratory Exam Respiratory Exam: Decreased Breath Sounds (B/L) - Cardiovascular Exam Cardiovascular Exam: +S1, +S2. absent: JVD - Extremities Exam Additional comments: Without change - Additional Findings Additional findings: LABORATORY BUN: 15 Creatinine: 0.6 Potassium: 4.2 Hemoglobin: 12.7 Assessment and Plan - Assessment and Plan (Free Text) Assessment: 1) DM 2) HTN 3) Progressive breast CA 4) Lethargy 5) Pleural effusion 6) Improvement of dyspnea Plan: Given these findings, the patient is currently DNR, will Telemetry today. Will continue low dose Lasix. Patient is waiting an echocardiogram.
--- NOTE | 2017-03-11 17:35 | CP.PCM.CON ---
History of Present Illness - History of Present Illness History of Present Illness: Pt is a 76 year old woman who presents from a subacute rehab with SOB. The patient's PMHx is notable for metastatic breast CA with metastases to the lungs. In addition, the pt has a PMHx of HTN. She states she has suffered from DM in the past. In addition, she states she has had palpitations, questionable angina and CHF in the past. Review of Systems - Review of Systems All systems: reviewed and no additional remarkable complaints except Past Patient History - Infectious Disease Hx of Infectious Diseases: None - Past Medical History & Family History Past Medical History?: Yes - Past Social History Smoking Status: Never Smoked Home Situation {Lives}: Half-Way - CARDIAC Hx Cardiac Disorders: Yes Hx Hypertension: Yes - PULMONARY Hx Sleep Apnea: Yes (wears cpap) Other/Comment: lung cancer - NEUROLOGICAL Hx Neurological Disorder: No Hx Paralysis: No - HEENT Hx HEENT Problems: No - RENAL Hx Chronic Kidney Disease: No - ENDOCRINE/METABOLIC Hx Diabetes Mellitus Type 2: Yes - HEMATOLOGICAL/ONCOLOGICAL Hx Blood Disorders: No Hx Blood Transfusions: No Hx Cancer: Yes (Lung CA) - INTEGUMENTARY Hx Dermatological Problems: No - MUSCULOSKELETAL/RHEUMATOLOGICAL Hx Arthritis: Yes (b/l knees) - GASTROINTESTINAL Hx Gastrointestinal Disorders: Yes Other/Comment: colonoscopy,constipation, colonic polyps - GENITOURINARY/GYNECOLOGICAL Hx Genitourinary Disorders: No - PSYCHIATRIC Hx Psychophysiologic Disorder: Yes Hx Anxiety: Yes Hx Substance Use: No - SURGICAL HISTORY Hx Surgeries: Yes (partial right masectomy) Hx Mastectomy: Yes - ANESTHESIA Hx Anesthesia: Yes Hx Anesthesia Reactions: No Hx Malignant Hyperthermia: No Meds Home Medications: Home Medication List Medication Instructions Recorded Confirmed Type Aspirin [Ecotrin] 81 mg PO DAILY 03/06/17 Rx Budesonide [Pulmicort Respules] 0.5 mg IH [id number] 03/06/17 Rx Docusate [Colace] 100 mg PO TID cap 03/06/17 Rx Enoxaparin [Lovenox] 40 mg SC DAILY syr 03/06/17 Rx Ferrous Sulfate [Feosol] 324 mg PO DAILY ect 03/06/17 Rx Furosemide [Lasix] 40 mg PO DAILY tab 03/06/17 Rx GlipiZIDE SR [Glucotrol XL] 2.5 mg PO DAILY tab 03/06/17 Rx Insulin Human Regular-HIGH 0 units SC ACHS ml 03/06/17 Rx [HumuLIN R HIGH] Ketorolac [Toradol] 30 mg IVP Q6 PRN vial 03/06/17 Rx Levalbuterol [Xopenex] 0.63 mg IH Q2 PRN 03/06/17 Rx Levalbuterol [Xopenex] 0.63 mg IH [id number] 03/06/17 Rx Losartan [Cozaar] 100 mg PO DAILY tab 03/06/17 Rx guaiFENesin/Dextromethorphan 5 ml PO Q6H PRN 03/06/17 Rx [Robitussin DM] hydroCHLOROthiazide [Microzide] 12.5 mg PO DAILY cap 03/06/17 Rx predniSONE [predniSONE Tab] 40 mg PO DAILY tab 03/06/17 Rx Allergies/Adverse Reactions: Allergies Allergy/AdvReac Type Severity Reaction Status Date / Time coconut Allergy Severe ITCHING,SWE Verified 08/28/16 09:50 LLING,HIVES lactose Allergy Severe GI DISTRESS Verified 08/28/16 09:50 Penicillins Allergy Severe HIVES,ITCHI Verified 08/28/16 09:50 NG NUTS Allergy Severe SWELLING,HI Uncoded 08/28/16 09:50 VES,ITCHING PALM SEED OIL Allergy Severe ITCHING,SWE Uncoded 08/28/16 09:50 LLING,HIVES seeds Allergy Intermediate RASH Uncoded 06/16/15 04:28 Physical Exam - Constitutional Additional comments: Patient is in no acute distress. BP 158/72, HR 110 sinus tachycardia - Respiratory Exam Respiratory Exam: Decreased Breath Sounds (bilaterally) - Cardiovascular Exam Cardiovascular Exam: +S1, +S2. absent: JVD - Extremities Exam Extremities exam: Negative for: pedal edema Results - Vital Signs Recent Vital Signs: Last Vital Signs Temp 98 F 03/06/17 16:00 Pulse 94 H 03/06/17 16:00 Resp 20 03/06/17 16:00 BP 160/82 H 03/06/17 16:00 Pulse Ox 98 03/06/17 16:00 - Labs Result Diagrams: 03/06/17 05:00 03/05/17 08:40 - Impressions Impression: EKG: Showed sinus tachycardia with right bundle branch block and left anterior hemiblock Laboratories: Glucose: 212 Troponin: negative x1 proBNP: 301 Hemoglobin: 11.2 Assessment & Plan - Assessment and Plan (Free Text) Assessment: Impression: 1) Metastatic breast CA to the lugs 2) Dyspnea 3) Hx of HTN 4) Hx of CHF 5) Hx of Angina 6) Anemia Plan: Given these findings, will arrange for an echocardiogram to evaluate her LV function. Pulmonary evaluation is necessary. - Date & Time Date: 03/04/17 Time: 13:10
--- NOTE | 2017-03-14 16:06 | CP.PCM.PN ---
Subjective - Date & Time of Evaluation Date of Evaluation: 03/06/17 Time of Evaluation: 11:00 - Subjective Subjective: The patient complains of malaise and shortness of breath. Objective - Vital Signs/Intake and Output Vital Signs (last 24 hours): 03/06/17: Blood pressure 156/78. The heart rate is in the 90s. Temp Pulse Resp BP Pulse Ox 98 F 94 H 20 160/82 H 98 03/06/17 16:00 03/06/17 16:00 03/06/17 16:00 03/06/17 16:00 03/06/17 16:00 - Labs Labs: 03/06/17: Laboratories: Hemoglobin 11.7; Chemistries: glucose is 165 03/06/17 05:00 03/05/17 08:40 PT 11.9 Seconds (9.9-11.8) H 03/03/17 23:00 INR 1.10 (0.93-1.08) H 03/03/17 23:00 APTT 27.5 Seconds (23.7-30.8) 03/03/17 23:00 - Neck Exam Additional comments: Negative JVD - Respiratory Exam Respiratory Exam: Decreased Breath Sounds (bilaterally ). absent: Rales - Cardiovascular Exam Cardiovascular Exam: +S1, +S2 - Extremities Exam Extremities Exam: absent: Pedal Edema Assessment and Plan - Assessment and Plan (Free Text) Assessment: 1. Metastatic Cancer 2. Pleural Effusions 3. Dyspnea 4. Anemia 5. General weakness 6. COPD Plan: Given these findings, we will continue the Lasix for now. There is no evidence for ivanna CHF.
== END 2017-03-06 19:00 | DRG 292 ==
LOC: ED 22:53 → ERH 03-04 00:46 → 2RSO 03-04 02:22 → OBSVTOIN 03-04 07:56 → 3RNO 03-05 14:23 → 2RSO 03-05 14:24 → 3RNO 03-05 14:46
PROVIDERS: ADMIT Family Medicine; ATTEND Family Medicine
DX: I11.0 Hypertensive heart disease with heart failure (principal); C78.00 Secondary malignant neoplasm of unspecified lung; J91.0 Malignant pleural effusion; J44.9 Chronic obstructive pulmonary disease, unspecified; E11.9 Type 2 diabetes mellitus without complications; I50.21 Acute systolic (congestive) heart failure; M46.96 Unspecified inflammatory spondylopathy, lumbar region; Z66 Do not resuscitate; Z79.4 Long term (current) use of insulin; Z90.11 Acquired absence of right breast and nipple; Z88.0 Allergy status to penicillin; Z85.3 Personal history of malignant neoplasm of breast